=== PATIENT | female | born 1995 | race Caucasian/White ===

== ENCOUNTER 2017-01-06 20:08 | Emergency (ER) | payer OTHER ==
[~2017-01-06] VITALS: Ht 172.7 cm; Wt 81.8 kg
[~2017-01-06 20:08] MED LIST: DENIES
[2017-01-06 20:16] VITALS: Ht 172.7 cm; Wt 81.8 kg
--- NOTE | 2017-01-06 21:53 | ERD ---
ER Documentation Chief Complaint Chief Complaint lump left side of neck x 4 days HPI 21-year-old female presents here to emergency department for complaints of a lump in the left side of the neck area, there is a small bump, was itching on affected area, night became more swollen. Patient describes the pain as sharp pain, 4/10 scale, as was upon touching the area. Patient does not have fever or chills. ROS All systems reviewed and are negative except as per history of present illness. Medications Home Meds Reported Medications [Denies] No Conflict Check 09/29/09 Allergies Allergies: Coded Allergies: Amoxicillin (Verified Allergy, Mild, 09/29/09) PMhx/Soc Medical and Surgical Hx: pt denies Medical Hx, pt denies Surgical Hx History of Surgery: No Anesthesia Reaction: No Hx Neurological Disorder: No Hx Respiratory Disorders: No Hx Cardiac Disorders: No Hx Psychiatric Problems: No Hx Miscellaneous Medical Probl: No Hx Alcohol Use: No Hx Substance Use: No Hx Tobacco Use: No FmHx Family History: No coronary disease, No diabetes, No other Physical Exam Vitals Vital Signs Date Time Temp Pulse Resp B/P Pulse Ox O2 Delivery O2 Flow Rate FiO2 01/06/17 20:16 99.8 86 20 131/85 98 Physical Exam GENERAL: The patient is well developed and appropriate for usual state of health, in no apparent distress. CHEST: Clear to auscultation bilaterally. There are no rales, wheezes or rhonchi. HEART: Regular rate and rhythm. No murmurs, clicks, rubs or gallops. No S3 or S4. ABDOMEN: Soft, nontender and nondistended. Good bowel sounds. No rebound or guarding. No gross peritonitis. No gross organomegaly or masses. No Odonnell sign or McBurney point tenderness. BACK: No midline or flank tenderness. EXTREMITIES: Equal pulses bilaterally. There is no peripheral clubbing, cyanosis or edema. No focal swelling or erythema. Full range of motion. Grossly neurovascularly intact. NEURO: Alert and oriented. Cranial nerves 2-12 intact. Motor strength in all 4 extremities with 5/5 strength. Sensation grossly intact. Normal speech and gait. SKIN: 2 cm diameter erythematous indurated area in the left neck area, tenderness on palpation, no fluctuance noted. There is no apparent rash or petechia. The skin is warm and dry. HEMATOLOGIC AND LYMPHATIC: There is no evidence of excessive bruising or lymphedema. No gross cervical, axillary, or inguinal lymphadenopathy. Procedures/MDM Clinical decision making: Patient symptoms was likely is consistent with infected insect bite. No symptoms of any abscess, incision and drainage not indicated at this time. No symptoms of any other acute emergencies at this time. Prescription was given for clindamycin, ibuprofen, is advised to apply warm compress on affected area, follow with primary care doctor in 2-3 days for reevaluation of symptoms. Patient was advised to return to emergency department for any worsening Disposition: Home. Stable. Departure Diagnosis: Primary Impression: Infected insect bite Encounter type: initial encounter Qualified Code: W57.XXXA - Bug bite with infection, initial encounter Condition: Stable Patient Instructions: Insect Sting/Bite, Infected TIFFANY DEAN NP Jan 06, 2017 21:53
[2017-01-06] MEDS ORDERED: IBUP-1542 PO (22:10)
[2017-01-06] MEDS ORDERED: CLIN-73 PO (22:10)
== END 2017-01-06 22:25 | disposition home or self-care (01) ==
LOC: FTE 20:08
DX: S10.96XA Insect bite of unspecified part of neck, initial encounter (principal); W57.XXXA Bitten or stung by nonvenomous insect and other nonvenomous arthropods, initial encounter; Y92.9 Unspecified place or not applicable
CPT/HCPCS: 99283

== ENCOUNTER 2017-09-16 19:37 | Outpatient (CLI) | END 2017-09-16 22:11 | disposition home or self-care (01) ==

== ENCOUNTER 2017-09-21 05:20 | Inpatient (IN) | END 2017-09-23 22:55 | disposition home or self-care (01) | DRG 775 ==